=== PATIENT | male | born 1970 | race Hispanic/Latino ===

== ENCOUNTER 2018-09-11 14:06 | Emergency (ER) | payer SELFPAY ==
--- NOTE | 2018-09-11 15:16 | RAD ---
EXAM: Chest 2 views: HISTORY: Chest pain COMPARISON: None. FINDINGS: There is a normal-sized cardiomediastinal silhouette. There is left basilar atelectasis. There is n o evidence of consolidation, mass, or pleural effusion. The bones are unremarkable. IMPRESSION: No evidence of acute cardiopulmonary disease
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
== END 2018-09-11 16:57 | disposition home or self-care (01) ==
LOC: ERS 14:06
DX: S22.43XA Multiple fractures of ribs, bilateral, initial encounter for closed fracture (principal); E11.9 Type 2 diabetes mellitus without complications; I10 Essential (primary) hypertension; E78.00 Pure hypercholesterolemia, unspecified; V89.2XXA Person injured in unspecified motor-vehicle accident, traffic, initial encounter
CPT/HCPCS: 71046; 71260; 93005

== ENCOUNTER 2021-06-12 16:22 | Inpatient (IN) | payer MEDICAID, OTHER, SELFPAY ==
[2021-06-12 17:35] LABS: #Lymphocytes 0.8 thou/uL (1.20-3.40); #Monocytes 0.7 thou/uL (0.11-0.59); #Neutrophils 11.4 thou/uL (1.40-6.50); %Basophils 0.1 % (0.0-1.0); %Eosinophils 0.1 % (0.0-10.0); %Lymphocytes 6.3 % (21.0-51.0); %Monocytes 5.5 % (0.0-10.0); Hemoglobin 12.7 g/dL (14.0-18.0); Mean Corpuscular HGB CONC 32.8 g/dL (32.0-36.0); Mean Corpuscular Hemoglobin 33.4 pg (27.0-31.0); Mean Platelet Volume 8.2 fL (7.4-10.4); Platelet Count 321 thou/uL (130-400); RBC Distribution Width 10.9 % (11.5-14.5)
[2021-06-12] MEDS ORDERED: Piperacillin/Tazobactam 4.5 GM VIAL ONE (17:39)
[2021-06-12] MEDS ORDERED: Morphine 4 MG/ML VIAL ONE (17:39)
[2021-06-12 17:55] LABS: ALT (SGPT) 14 U/L (8-55); AST (SGOT) 27 U/L (5-34); Albumin 2.6 g/dL (3.5-5.0); Alkaline Phosphatase 131 U/L (40-110); Anion Gap 29 mmol/L (10-20); BUN (Urea Nitrogen) 67 mg/dL (8.9-20.6); Bilirubin, Total 0.4 mg/dL (0.2-1.2); Calc. Creatinine Clearance 0 mL/min (70-130); Calcium 8.3 mg/dL (7.8-10.44); Carbon Dioxide 15 mmol/L (22-29); Chloride 83 mmol/L (98-107); Globulin 5.7 g/dL (2.4-3.5); Potassium 5.9 mmol/L (3.5-5.1); Protein, Total 8.3 g/dL (6.0-8.3); Sodium 121 mmol/L (136-145)
[2021-06-12 18:04] LABS: Glucose 659 mg/dL (70-105)
[2021-06-12] MEDS ORDERED: Vancomycin 1 GM/200 ML BAG ONE (18:05)
[2021-06-12] MEDS ORDERED: Electrolyte Replacement Protocol 1 EACH IVPB PRN (19:18)
[2021-06-12] MEDS ORDERED: NS 0.9% w/ 20 MEQ KCL 1,000 ML IV PRN ×2 (19:18)
[2021-06-12] MEDS ORDERED: Ondansetron PF 4 MG/2 ML Vial IVP PRN (19:18)
[2021-06-12] MEDS ORDERED: Sodium Chloride 0.9% 1,000 ML IV PRN ×4 (19:18)
[2021-06-12] MEDS ORDERED: Calcium Carbonate 500 MG ChewTAB PO PRN (19:18)
[2021-06-12] MEDS ORDERED: Dextrose 5 %-0.45 % NaCl 1,000 ML IV PRN (19:18)
[2021-06-12] MEDS ORDERED: INSULIN REGULAR IN 0.9 % NACL 100 UNIT/100 ML BAG ONE (19:33)
[2021-06-12 20:38] LABS: Hemoglobin A1c 13.3 % (4.0-6.0)
[2021-06-12 20:47] LABS: Lactic Acid 2.2 mmol/L (0.5-2.2)
[2021-06-12 20:52] LABS: Anion Gap 21 mmol/L (10-20); BUN (Urea Nitrogen) 62 mg/dL (8.9-20.6); Calc. Creatinine Clearance 0 mL/min (70-130); Calcium 8.4 mg/dL (7.8-10.44); Carbon Dioxide 17 mmol/L (22-29); Chloride 91 mmol/L (98-107); Glucose 509 mg/dL (70-105); Magnesium 2.4 mg/dL (1.6-2.6); Phosphorus 5.1 mg/dL (2.3-4.7); Potassium 4.3 mmol/L (3.5-5.1); Sodium 125 mmol/L (136-145)
[2021-06-12] MEDS ORDERED: HUMULIN R 100 UNITS in Sodium Chloride 0.9% 100 ML IVPB SCH (21:00)
[2021-06-12] MEDS ORDERED: Heparin 5,000 UNITS/ML VIAL SC SCH ×2 (21:00→21:45)
[2021-06-12] MEDS ORDERED: Sodium Bicarbonate 50 MEQ in Sodium Chloride 0.45% 1,000 ML IV SCH (21:30)
[2021-06-12] MEDS: Morphine 2 MG/ML VIAL SLOW IVP PRN (21:38)
[2021-06-12] MEDS: Famotidine 20 MG TAB PO SCH (21:39)
[2021-06-12] MEDS: Clindamycin/D5W 900 MG in Premix Bag 1 BAG IVPB SCH (22:35)
[2021-06-12 23:58] LABS: Anion Gap 21 mmol/L (10-20); BUN (Urea Nitrogen) 58 mg/dL (8.9-20.6); Calc. Creatinine Clearance 52 mL/min (70-130); Calcium 8.7 mg/dL (7.8-10.44); Carbon Dioxide 19 mmol/L (22-29); Chloride 96 mmol/L (98-107); Glucose 208 mg/dL (70-105); Sodium 132 mmol/L (136-145)
[2021-06-13] MEDS: D5 1/2 NS w/20 mEq KCL 1,000 ML IV PRN ×2 (00:13→04:50)
[2021-06-13 00:32] LABS: SARS-CoV-2 NAA Rapid Test Not Detected (NotDetected)
[2021-06-13] MEDS: Piperacillin/Tazobactam 3.375 GM in Sodium Chloride 0.9% 100 ML IVPB SCH ×3 (01:08→16:04)
[2021-06-13] MEDS ORDERED: Vancomycin HCl 1 GM in Sodium Chloride 0.9% 250 ML 300 ML IVPB SCH (02:00)
[2021-06-13 04:12] LABS: ALT (SGPT) 12 U/L (8-55); AST (SGOT) 25 U/L (5-34); Alkaline Phosphatase 84 U/L (40-110); Anion Gap 13 mmol/L (10-20); BUN (Urea Nitrogen) 44 mg/dL (8.9-20.6); Bilirubin, Total 0.3 mg/dL (0.2-1.2); Calc. Creatinine Clearance 79 mL/min (70-130); Calcium 7.9 mg/dL (7.8-10.44); Carbon Dioxide 22 mmol/L (22-29); Chloride 100 mmol/L (98-107); Globulin 4.9 g/dL (2.4-3.5); Glucose 184 mg/dL (70-105); Potassium 3.5 mmol/L (3.5-5.1); Protein, Total 6.9 g/dL (6.0-8.3); Sodium 131 mmol/L (136-145)
[2021-06-13] MEDS: Acetaminophen 325 MG TAB PO PRN (04:18)
[2021-06-13 04:22] LABS: Hemoglobin 9.9 g/dL (14.0-18.0); Mean Corpuscular HGB CONC 34.2 g/dL (32.0-36.0); Mean Corpuscular Volume 99.2 fL (78.0-98.0); Mean Platelet Volume 7.4 fL (7.4-10.4); Platelet Count 237 thou/uL (130-400); RBC Distribution Width 10.8 % (11.5-14.5); Red Blood Cell (RBC) Count 2.91 mill/uL (4.70-6.10); White Blood Cell (WBC) Count 7.4 thou/uL (4.8-10.8)
[2021-06-13] MEDS: Clindamycin/D5W 900 MG in Premix Bag 1 BAG IVPB SCH ×3 (05:06→21:03)
[2021-06-13 05:12] LABS: Band 31 % (5-11); Lymphocytes 18 % (21-51); MDiff Complete? YES; Metamyelocyte 1 % (0-0); Monocytes 4 % (0-10); Neutrophil 46 % (42-75)
[2021-06-13] MEDS ORDERED: Insulin Glargine 30 UNITS/0.3 ML VIAL SC SCH ×2 (06:00→21:00)
[2021-06-13] MEDS: Vancomycin HCl 1.25 GM in Sodium Chloride 0.9% 250 ML 250 ML IVPB SCH (06:03)
[2021-06-13] MEDS ORDERED: Potassium Chloride 20 MEQ TAB PO SCH (06:30)
[2021-06-13] MEDS ORDERED: HumaLOG 300 UNITS/3 ML VIAL SC PRN (06:35)
[2021-06-13] MEDS ORDERED: Dextrose 5% in Water 1,000 ML IV PRN (06:35)
[2021-06-13] MEDS ORDERED: Dextrose 50% Abboject 50 ML SYRINGE SLOW IVP PRN (06:35)
[2021-06-13] MEDS: Potassium Chloride 20 MEQ in Premix Bag 1 BAG IVPB SCH ×2 (07:07→09:11)
[2021-06-13] MEDS: Heparin 5,000 UNITS/ML VIAL SC SCH ×3 (09:12→20:59)
[2021-06-13] MEDS: Famotidine 20 MG TAB PO SCH ×2 (09:12→21:03)
[2021-06-13] MEDS: D5 1/2 NS w/20 mEq KCL 1,000 ML IV SCH ×2 (09:35→15:55)
[2021-06-13] MEDS: Morphine 2 MG/ML VIAL SLOW IVP PRN ×3 (10:55→19:21)
[2021-06-13] MEDS: HumaLOG 300 UNITS/3 ML VIAL SC PRN ×3 (11:18→21:02)
[2021-06-13] MEDS ORDERED: Lidocaine 1% PF 5 ML VIAL ONE (15:54)
[2021-06-13] MEDS ORDERED: Ondansetron PF 4 MG/2 ML Vial ONE (15:54)
[2021-06-13] MEDS ORDERED: PROPOFOL 200 MG/20 ML VIAL ONE (15:54)
[2021-06-13] MEDS ORDERED: Rocuronium Bromide 10 MG/ML (10ML VIAL) ONE (15:54)
[2021-06-13] MEDS ORDERED: Calcium Chloride 1 GM/10 ML Abboject SYRINGE ONE (15:54)
[2021-06-13] MEDS ORDERED: SUGAMMADEX SODIUM 200 MG/2 ML VIAL ONE (16:30)
[2021-06-14] MEDS: Piperacillin/Tazobactam 3.375 GM in Sodium Chloride 0.9% 100 ML IVPB SCH ×3 (00:38→17:27)
[2021-06-14] MEDS: Acetaminophen 325 MG TAB PO PRN (00:38)
[2021-06-14] MEDS: Morphine 2 MG/ML VIAL SLOW IVP PRN ×2 (03:16→11:17)
[2021-06-14] MEDS: HumaLOG 300 UNITS/3 ML VIAL SC PRN ×4 (03:17→16:27)
[2021-06-14] MEDS: D5 1/2 NS w/20 mEq KCL 1,000 ML IV SCH (03:44)
[2021-06-14 03:45] LABS: #Lymphocytes 0.7 thou/uL (1.20-3.40); #Monocytes 0.3 thou/uL (0.11-0.59); #Neutrophils 5.1 thou/uL (1.40-6.50); %Lymphocytes 11.1 % (21.0-51.0); %Monocytes 5.2 % (0.0-10.0); %Neutrophils 83.6 % (42.0-75.0); Hemoglobin 9.4 g/dL (14.0-18.0); Mean Corpuscular HGB CONC 33.5 g/dL (32.0-36.0); Mean Corpuscular Hemoglobin 33.8 pg (27.0-31.0); Mean Platelet Volume 7.7 fL (7.4-10.4); Platelet Count 222 thou/uL (130-400); Red Blood Cell (RBC) Count 2.78 mill/uL (4.70-6.10); White Blood Cell (WBC) Count 6.1 thou/uL (4.8-10.8)
[2021-06-14 04:05] LABS: ALT (SGPT) 13 U/L (8-55); AST (SGOT) 24 U/L (5-34); Albumin 1.9 g/dL (3.5-5.0); Alkaline Phosphatase 70 U/L (40-110); Anion Gap 12 mmol/L (10-20); BUN (Urea Nitrogen) 14 mg/dL (8.9-20.6); Bilirubin, Total 0.3 mg/dL (0.2-1.2); Calc. Creatinine Clearance 116 mL/min (70-130); Carbon Dioxide 21 mmol/L (22-29); Chloride 103 mmol/L (98-107); Globulin 4.6 g/dL (2.4-3.5); Glucose 245 mg/dL (70-105); Potassium 3.2 mmol/L (3.5-5.1); Protein, Total 6.5 g/dL (6.0-8.3); Sodium 133 mmol/L (136-145)
[2021-06-14] MEDS: Clindamycin/D5W 900 MG in Premix Bag 1 BAG IVPB SCH ×3 (05:05→21:25)
[2021-06-14] MEDS ORDERED: HYDROcodone/Acetaminophen 5/325 mg Tablet PO SCH (05:30)
[2021-06-14] MEDS ORDERED: Potassium Chloride 20 MEQ in Premix Bag 1 BAG IVPB SCH (06:00)
[2021-06-14] MEDS: Vancomycin HCl 1.25 GM in Sodium Chloride 0.9% 250 ML 250 ML IVPB SCH (06:41)
[2021-06-14] MEDS: Acetaminophen 500 MG TAB PO SCH ×3 (08:29→21:23)
[2021-06-14] MEDS: metFORMIN 500 MG TAB PO SCH ×2 (08:30→17:24)
[2021-06-14] MEDS: Gabapentin 100 MG CAP PO SCH ×3 (08:30→21:20)
[2021-06-14] MEDS: Heparin 5,000 UNITS/ML VIAL SC SCH ×3 (08:31→21:24)
[2021-06-14] MEDS: Famotidine 20 MG TAB PO SCH ×2 (08:31→21:24)
[2021-06-14] MEDS: Ibuprofen 800 MG TAB PO SCH ×2 (08:35→15:06)
[2021-06-14] MEDS: HYDROcodone/Acetaminophen 7.5/325 mg Tablet PO PRN (21:23)
[2021-06-14] MEDS: NPH, Human Insulin Isophane 300 UNIT/3 ML VIAL SC SCH (21:26)
[2021-06-14] MEDS ORDERED: Sodium Chloride 0.9% 500 ML IV SCH (21:45)
[2021-06-14] MEDS ORDERED: Ketorolac Tromethamine 30 MG/ML VIAL IVP SCH (23:15)
[2021-06-14] MEDS ORDERED: Sodium Chloride 0.9% 1,000 ML IV SCH (23:15)
[2021-06-15] MEDS: Ibuprofen 800 MG TAB PO SCH ×4 (00:55→22:03)
[2021-06-15] MEDS: Piperacillin/Tazobactam 3.375 GM in Sodium Chloride 0.9% 100 ML IVPB SCH ×2 (01:00→10:07)
[2021-06-15] MEDS: Acetaminophen 500 MG TAB PO SCH ×4 (01:46→18:10)
[2021-06-15 04:58] LABS: Bilirubin Negative (Negative); Blood, Urine Negative (Negative); Clarity Clear (Clear); Glucose, Urine (Dipstick) 500 mg/dL (Negative); Ketone, Urine Negative (Negative); Leukocyte Negative Leu/uL (Negative); Nitrite Negative (Negative); Protein, Urine (Dipstick) 30 mg/dL (Neg-Trace); Urobilinogen Normal mg/dL (Less than 2); pH, Urine 5.5 (5.0-9.0)
[2021-06-15] MEDS: Clindamycin/D5W 900 MG in Premix Bag 1 BAG IVPB SCH (05:40)
[2021-06-15] MEDS ORDERED: Vancomycin HCl 1.5 GM in Sodium Chloride 0.9% 250 ML 300 ML IVPB SCH (06:00)
[2021-06-15 06:04] LABS: #Lymphocytes 0.9 thou/uL (1.20-3.40); #Monocytes 0.3 thou/uL (0.11-0.59); #Neutrophils 5.2 thou/uL (1.40-6.50); %Basophils 0.3 % (0.0-1.0); %Eosinophils 0.6 % (0.0-10.0); %Lymphocytes 13.7 % (21.0-51.0); %Neutrophils 81.3 % (42.0-75.0); Hemoglobin 10.1 g/dL (14.0-18.0); Mean Corpuscular HGB CONC 32.7 g/dL (32.0-36.0); Mean Corpuscular Hemoglobin 33.6 pg (27.0-31.0); Mean Platelet Volume 7.9 fL (7.4-10.4); Platelet Count 243 thou/uL (130-400); RBC Distribution Width 11.2 % (11.5-14.5); Red Blood Cell (RBC) Count 3.02 mill/uL (4.70-6.10); White Blood Cell (WBC) Count 6.4 thou/uL (4.8-10.8)
[2021-06-15] MEDS: HumaLOG 300 UNITS/3 ML VIAL SC PRN (06:26)
[2021-06-15 06:30] LABS: Vancomycin, Trough 7.2 ug/mL
[2021-06-15 06:31] LABS: ALT (SGPT) 10 U/L (8-55); AST (SGOT) 20 U/L (5-34); Albumin 1.8 g/dL (3.5-5.0); Alkaline Phosphatase 74 U/L (40-110); Anion Gap 13 mmol/L (10-20); BUN (Urea Nitrogen) 21 mg/dL (8.9-20.6); Bilirubin, Total 0.2 mg/dL (0.2-1.2); Calc. Creatinine Clearance 109 mL/min (70-130); Calcium 7.7 mg/dL (7.8-10.44); Carbon Dioxide 21 mmol/L (22-29); Chloride 104 mmol/L (98-107); Globulin 4.6 g/dL (2.4-3.5); Glucose 221 mg/dL (70-105); Potassium 3.1 mmol/L (3.5-5.1); Protein, Total 6.4 g/dL (6.0-8.3); Sodium 135 mmol/L (136-145)
[2021-06-15] MEDS ORDERED: Potassium Chloride 20 MEQ TAB PO SCH (07:00)
[2021-06-15] MEDS: Vancomycin HCl 1.25 GM in Sodium Chloride 0.9% 250 ML 250 ML IVPB SCH (07:26)
[2021-06-15] MEDS: Vancomycin HCl 1.5 GM in Sodium Chloride 0.9% 250 ML 300 ML IVPB SCH ×2 (07:50→18:10)
[2021-06-15] MEDS ORDERED: NS 0.9% w/ 20 MEQ KCL 1,000 ML/1,000 ML BAG IV SCH (08:00)
[2021-06-15] MEDS: Gabapentin 100 MG CAP PO SCH ×3 (08:04→21:58)
[2021-06-15] MEDS: Famotidine 20 MG TAB PO SCH ×2 (08:04→21:57)
[2021-06-15] MEDS: NPH, Human Insulin Isophane 300 UNIT/3 ML VIAL SC SCH ×2 (08:05→22:19)
[2021-06-15] MEDS: Heparin 5,000 UNITS/ML VIAL SC SCH ×3 (08:05→21:59)
[2021-06-15] MEDS: metFORMIN 850 MG TAB PO SCH ×2 (08:06→18:10)
[2021-06-15] MEDS ORDERED: Saccharomyces boulardii 250 MG CAP PO SCH (12:45)
[2021-06-15] MEDS: Morphine 2 MG/ML VIAL SLOW IVP PRN (14:20)
[2021-06-15] MEDS: cefTRIAXone\\ROCEPHIN 1 GM in Sodium Chloride 0.9% 100 ML IVPB SCH (15:05)
[2021-06-15] MEDS: HYDROcodone/Acetaminophen 7.5/325 mg Tablet PO PRN (16:04)
[2021-06-15] MEDS: Lactated Ringer's 1,000 ML IV SCH ×2 (19:23→21:52)
[2021-06-15 21:29] VITALS: BMI 27.1
[2021-06-16] MEDS: Acetaminophen 500 MG TAB PO SCH ×5 (01:25→20:42)
[2021-06-16] MEDS: Ibuprofen 800 MG TAB PO SCH ×3 (05:50→23:13)
[2021-06-16] MEDS: HYDROcodone/Acetaminophen 7.5/325 mg Tablet PO PRN ×3 (05:52→13:53)
[2021-06-16] MEDS: Lactated Ringer's 1,000 ML IV SCH ×2 (05:54→21:40)
[2021-06-16 06:03] LABS: ALT (SGPT) 10 U/L (8-55); AST (SGOT) 25 U/L (5-34); Albumin 1.9 g/dL (3.5-5.0); Alkaline Phosphatase 93 U/L (40-110); Anion Gap 13 mmol/L (10-20); BUN (Urea Nitrogen) 17 mg/dL (8.9-20.6); Bilirubin, Total 0.2 mg/dL (0.2-1.2); Calc. Creatinine Clearance 141 mL/min (70-130); Calcium 7.7 mg/dL (7.8-10.44); Carbon Dioxide 18 mmol/L (22-29); Chloride 107 mmol/L (98-107); Globulin 4.8 g/dL (2.4-3.5); Glucose 110 mg/dL (70-105); Potassium 3.1 mmol/L (3.5-5.1); Protein, Total 6.7 g/dL (6.0-8.3); Sodium 135 mmol/L (136-145)
[2021-06-16] MEDS ORDERED: Potassium Chloride 20 MEQ TAB PO SCH (06:15)
[2021-06-16] MEDS: Morphine 2 MG/ML VIAL SLOW IVP PRN ×2 (06:17→09:24)
[2021-06-16] MEDS: Vancomycin HCl 1.5 GM in Sodium Chloride 0.9% 250 ML 300 ML IVPB SCH ×2 (08:24→18:00)
[2021-06-16] MEDS: Saccharomyces boulardii 250 MG CAP PO SCH (08:30)
[2021-06-16] MEDS: metFORMIN 500 MG TAB PO SCH ×2 (08:30→18:00)
[2021-06-16] MEDS: Famotidine 20 MG TAB PO SCH ×2 (08:32→21:39)
[2021-06-16] MEDS: Gabapentin 100 MG CAP PO SCH ×3 (08:34→21:39)
[2021-06-16] MEDS: NPH, Human Insulin Isophane 300 UNIT/3 ML VIAL SC SCH ×2 (08:34→21:39)
[2021-06-16] MEDS: Heparin 5,000 UNITS/ML VIAL SC SCH ×3 (08:34→21:39)
[2021-06-16] MEDS ORDERED: Tamsulosin HCl 0.4 MG CAP PO SCH (12:30)
[2021-06-16] MEDS ORDERED: Folic Acid 1 MG TAB PO SCH (13:00)
[2021-06-16] MEDS: cefTRIAXone\\ROCEPHIN 1 GM in Sodium Chloride 0.9% 100 ML IVPB SCH (15:11)
[2021-06-16 17:24] LABS: Vancomycin, Trough 22.2 ug/mL
[2021-06-17] MEDS: Acetaminophen 500 MG TAB PO SCH ×4 (01:51→19:45)
[2021-06-17] MEDS: Vancomycin HCl 1.5 GM in Sodium Chloride 0.9% 250 ML 300 ML IVPB SCH (05:46)
[2021-06-17 06:03] LABS: ALT (SGPT) 15 U/L (8-55); AST (SGOT) 34 U/L (5-34); Albumin 1.8 g/dL (3.5-5.0); Alkaline Phosphatase 106 U/L (40-110); Anion Gap 13 mmol/L (10-20); BUN (Urea Nitrogen) 9 mg/dL (8.9-20.6); Bilirubin, Total 0.2 mg/dL (0.2-1.2); Calc. Creatinine Clearance 154 mL/min (70-130); Calcium 7.4 mg/dL (7.8-10.44); Carbon Dioxide 19 mmol/L (22-29); Chloride 105 mmol/L (98-107); Globulin 4.6 g/dL (2.4-3.5); Glucose 155 mg/dL (70-105); Potassium 3.5 mmol/L (3.5-5.1); Protein, Total 6.4 g/dL (6.0-8.3); Sodium 133 mmol/L (136-145)
[2021-06-17] MEDS ORDERED: Potassium Chloride 20 MEQ TAB PO SCH (06:30)
[2021-06-17] MEDS: Ibuprofen 800 MG TAB PO SCH ×3 (07:27→23:11)
[2021-06-17] MEDS: Lactated Ringer's 1,000 ML IV SCH ×2 (07:31→14:57)
[2021-06-17] MEDS: Gabapentin 100 MG CAP PO SCH ×3 (09:37→19:45)
[2021-06-17] MEDS: Folic Acid 1 MG TAB PO SCH (09:38)
[2021-06-17] MEDS: metFORMIN 500 MG TAB PO SCH ×2 (09:38→17:43)
[2021-06-17] MEDS: Saccharomyces boulardii 250 MG CAP PO SCH (09:38)
[2021-06-17] MEDS: Tamsulosin HCl 0.4 MG CAP PO SCH (09:39)
[2021-06-17] MEDS: Heparin 5,000 UNITS/ML VIAL SC SCH ×3 (09:39→19:46)
[2021-06-17] MEDS: Famotidine 20 MG TAB PO SCH ×2 (09:40→19:45)
[2021-06-17] MEDS: NPH, Human Insulin Isophane 300 UNIT/3 ML VIAL SC SCH ×2 (09:43→19:49)
[2021-06-17] MEDS: Morphine 2 MG/ML VIAL SLOW IVP PRN (09:55)
[2021-06-17] MEDS ORDERED: Cephalexin 250 MG CAP PO SCH (12:00)
[2021-06-17] MEDS: HYDROcodone/Acetaminophen 7.5/325 mg Tablet PO PRN ×2 (12:43→23:28)
[2021-06-17] MEDS ORDERED: Piperacillin/Tazobactam 3.375 GM in Sodium Chloride 0.9% 100 ML IVPB SCH (13:15)
[2021-06-17] MEDS ORDERED: Piperacillin/Tazobactam 4.5 GM in Sodium Chloride 0.9% 100 ML IVPB SCH (14:00)
[2021-06-17] MEDS: Piperacillin/Tazobactam 3.375 GM in Sodium Chloride 0.9% 100 ML IVPB SCH (17:40)
[2021-06-18] MEDS: Piperacillin/Tazobactam 3.375 GM in Sodium Chloride 0.9% 100 ML IVPB SCH ×3 (01:19→18:28)
[2021-06-18] MEDS: Acetaminophen 500 MG TAB PO SCH ×4 (01:19→20:28)
[2021-06-18] MEDS: Lactated Ringer's 1,000 ML IV SCH ×2 (01:20→11:35)
[2021-06-18 06:18] LABS: ALT (SGPT) 13 U/L (8-55); AST (SGOT) 23 U/L (5-34); Albumin 1.6 g/dL (3.5-5.0); Alkaline Phosphatase 81 U/L (40-110); Anion Gap 10 mmol/L (10-20); BUN (Urea Nitrogen) 6 mg/dL (8.9-20.6); Bilirubin, Total 0.2 mg/dL (0.2-1.2); Calc. Creatinine Clearance 156 mL/min (70-130); Calcium 7.1 mg/dL (7.8-10.44); Carbon Dioxide 24 mmol/L (22-29); Chloride 105 mmol/L (98-107); Globulin 4.2 g/dL (2.4-3.5); Glucose 114 mg/dL (70-105); Potassium 3.1 mmol/L (3.5-5.1); Protein, Total 5.8 g/dL (6.0-8.3); Sodium 136 mmol/L (136-145)
[2021-06-18] MEDS ORDERED: Potassium Chloride 20 MEQ TAB PO SCH (06:45)
[2021-06-18] MEDS: Ibuprofen 800 MG TAB PO SCH ×3 (06:47→23:17)
[2021-06-18] MEDS: metFORMIN 500 MG TAB PO SCH ×2 (08:55→18:27)
[2021-06-18] MEDS: Gabapentin 100 MG CAP PO SCH ×3 (08:56→20:29)
[2021-06-18] MEDS: Tamsulosin HCl 0.4 MG CAP PO SCH (08:57)
[2021-06-18] MEDS: Heparin 5,000 UNITS/ML VIAL SC SCH ×3 (08:58→20:32)
[2021-06-18] MEDS: Saccharomyces boulardii 250 MG CAP PO SCH (08:58)
[2021-06-18] MEDS: Famotidine 20 MG TAB PO SCH ×2 (08:58→20:28)
[2021-06-18] MEDS: Folic Acid 1 MG TAB PO SCH (08:58)
[2021-06-18] MEDS: NPH, Human Insulin Isophane 300 UNIT/3 ML VIAL SC SCH ×2 (08:59→20:47)
[2021-06-18] MEDS: Morphine 2 MG/ML VIAL SLOW IVP PRN (09:22)
[2021-06-18] MEDS: HYDROcodone/Acetaminophen 7.5/325 mg Tablet PO PRN ×2 (11:16→20:30)
[2021-06-18] MEDS ORDERED: Cephalexin 250 MG CAP PO SCH (12:00)
[2021-06-18] MEDS ORDERED: Piperacillin/Tazobactam 3.375 GM in Sodium Chloride 0.9% 100 ML IVPB SCH (18:00)
[2021-06-18] MEDS: Potassium Chloride 20 MEQ in Lactated Ringer's 1,000 ML IV SCH (18:42)
[2021-06-19] MEDS: Piperacillin/Tazobactam 3.375 GM in Sodium Chloride 0.9% 100 ML IVPB SCH ×3 (03:01→17:35)
[2021-06-19] MEDS: Acetaminophen 500 MG TAB PO SCH ×2 (03:02→18:00)
[2021-06-19 05:47] LABS: #Eosinphils 0.1 thou/uL (0.0-0.7); #Lymphocytes 1.1 thou/uL (1.20-3.40); #Monocytes 0.4 thou/uL (0.11-0.59); #Neutrophils 3.6 thou/uL (1.40-6.50); %Basophils 0.2 % (0.0-1.0); %Eosinophils 1.6 % (0.0-10.0); %Lymphocytes 20.5 % (21.0-51.0); %Monocytes 7.2 % (0.0-10.0); %Neutrophils 70.5 % (42.0-75.0); Hemoglobin 8.3 g/dL (14.0-18.0); Mean Corpuscular HGB CONC 32.9 g/dL (32.0-36.0); Platelet Count 286 thou/uL (130-400); Red Blood Cell (RBC) Count 2.51 mill/uL (4.70-6.10); White Blood Cell (WBC) Count 5.1 thou/uL (4.8-10.8)
[2021-06-19 06:19] LABS: Anion Gap 8 mmol/L (10-20); BUN (Urea Nitrogen) 5 mg/dL (8.9-20.6); Calc. Creatinine Clearance 173 mL/min (70-130); Calcium 7.7 mg/dL (7.8-10.44); Carbon Dioxide 26 mmol/L (22-29); Chloride 105 mmol/L (98-107); Glucose 80 mg/dL (70-105); Potassium 3.4 mmol/L (3.5-5.1); Sodium 136 mmol/L (136-145)
[2021-06-19] MEDS ORDERED: Potassium Chloride 20 MEQ TAB PO SCH (06:30)
[2021-06-19] MEDS: HYDROcodone/Acetaminophen 7.5/325 mg Tablet PO PRN ×3 (06:48→20:23)
[2021-06-19] MEDS: Morphine 2 MG/ML VIAL SLOW IVP PRN ×2 (08:53→15:12)
[2021-06-19] MEDS ORDERED: Acetaminophen 500 MG TAB PO PRN (09:12)
[2021-06-19] MEDS: Famotidine 20 MG TAB PO SCH ×2 (09:20→20:23)
[2021-06-19] MEDS: Gabapentin 100 MG CAP PO SCH ×3 (09:20→20:23)
[2021-06-19] MEDS: Tamsulosin HCl 0.4 MG CAP PO SCH (09:20)
[2021-06-19] MEDS: metFORMIN 500 MG TAB PO SCH ×2 (09:22→17:37)
[2021-06-19] MEDS ORDERED: D5 LR w/20 mEq KCL 1,000 ML IV SCH (09:45)
[2021-06-19] MEDS ORDERED: fentaNYL Citrate/PF 100 MCG/2 ML SYRINGE ONE (10:37)
[2021-06-19 11:28] LABS: SARS-CoV-2 PCR by NAA Not Detected (NotDetected)
[2021-06-19] MEDS ORDERED: Fentanyl 100 MCG/2 ML VIAL ONE ×3 (11:41→14:31)
[2021-06-19] MEDS ORDERED: Midazolam HCl 2 mg/2 ml Vial ONE (11:41)
[2021-06-19] MEDS ORDERED: Bupivacaine PF 0.5% 30 ML VIAL ONE (11:41)
[2021-06-19] MEDS ORDERED: Dextrose 50% Abboject 50 ML SYRINGE ONE (12:01)
[2021-06-19] MEDS: Heparin 5,000 UNITS/ML VIAL SC SCH ×3 (12:09→23:34)
[2021-06-19] MEDS: Ibuprofen 800 MG TAB PO SCH ×2 (12:09→17:35)
[2021-06-19] MEDS ORDERED: Phenylephrine 10 MG/ML VIAL ONE (12:19)
[2021-06-19] MEDS ORDERED: Ondansetron PF 4 MG/2 ML Vial ONE (12:32)
[2021-06-19] MEDS ORDERED: Lidocaine 1% PF 5 ML VIAL ONE (12:32)
[2021-06-19] MEDS ORDERED: Dexamethasone 20 MG/5 ML VIAL ONE (12:32)
[2021-06-19] MEDS ORDERED: PROPOFOL 200 MG/20 ML VIAL ONE (12:32)
[2021-06-19] MEDS ORDERED: Succinylcholine 200 MG/10 ml SYRINGE FS ONE (12:32)
[2021-06-19] MEDS ORDERED: Morphine 4 MG/ML VIAL SLOW IVP PRN (15:12)
[2021-06-19] MEDS: Saccharomyces boulardii 250 MG CAP PO SCH (15:14)
[2021-06-19] MEDS: Folic Acid 1 MG TAB PO SCH (15:14)
[2021-06-19] MEDS: HumaLOG 300 UNITS/3 ML VIAL SC PRN (17:38)
[2021-06-19] MEDS: Potassium Chloride 20 MEQ in Lactated Ringer's 1,000 ML IV SCH (18:00)
[2021-06-19] MEDS: NPH, Human Insulin Isophane 300 UNIT/3 ML VIAL SC SCH (22:55)
[2021-06-20] MEDS: Piperacillin/Tazobactam 3.375 GM in Sodium Chloride 0.9% 100 ML IVPB SCH ×3 (01:16→18:30)
[2021-06-20] MEDS: HYDROcodone/Acetaminophen 7.5/325 mg Tablet PO PRN ×5 (01:17→23:50)
[2021-06-20] MEDS: Ibuprofen 800 MG TAB PO SCH ×4 (01:17→23:51)
[2021-06-20] MEDS: HumaLOG 300 UNITS/3 ML VIAL SC PRN (05:58)
[2021-06-20 06:18] LABS: #Eosinphils 0.1 thou/uL (0.0-0.7); #Lymphocytes 1.3 thou/uL (1.20-3.40); #Monocytes 0.3 thou/uL (0.11-0.59); #Neutrophils 4.5 thou/uL (1.40-6.50); %Basophils 0.2 % (0.0-1.0); %Eosinophils 0.9 % (0.0-10.0); %Lymphocytes 21.8 % (21.0-51.0); %Monocytes 4.5 % (0.0-10.0); %Neutrophils 72.5 % (42.0-75.0); Hemoglobin 8.7 g/dL (14.0-18.0); Mean Corpuscular Hemoglobin 32.6 pg (27.0-31.0); Mean Platelet Volume 6.1 fL (7.4-10.4); Platelet Count 465 thou/uL (130-400); RBC Distribution Width 11.2 % (11.5-14.5); Red Blood Cell (RBC) Count 2.66 mill/uL (4.70-6.10); White Blood Cell (WBC) Count 6.2 thou/uL (4.8-10.8)
[2021-06-20] MEDS: Folic Acid 1 MG TAB PO SCH (07:39)
[2021-06-20] MEDS: metFORMIN 500 MG TAB PO SCH ×2 (07:39→15:49)
[2021-06-20] MEDS: Saccharomyces boulardii 250 MG CAP PO SCH (07:39)
[2021-06-20] MEDS: Tamsulosin HCl 0.4 MG CAP PO SCH (07:39)
[2021-06-20] MEDS: Heparin 5,000 UNITS/ML VIAL SC SCH ×3 (07:41→20:10)
[2021-06-20] MEDS: Gabapentin 100 MG CAP PO SCH ×3 (09:37→20:10)
[2021-06-20] MEDS: Famotidine 20 MG TAB PO SCH ×2 (09:37→20:09)
[2021-06-20] MEDS: NPH, Human Insulin Isophane 300 UNIT/3 ML VIAL SC SCH ×2 (11:43→20:55)
[2021-06-20 13:42] LABS: Anion Gap 12 mmol/L (10-20); BUN (Urea Nitrogen) 9 mg/dL (8.9-20.6); Calc. Creatinine Clearance 131 mL/min (70-130); Calcium 7.7 mg/dL (7.8-10.44); Carbon Dioxide 23 mmol/L (22-29); Chloride 103 mmol/L (98-107); Glucose 120 mg/dL (70-105); Potassium 3.7 mmol/L (3.5-5.1); Sodium 134 mmol/L (136-145)
[2021-06-21] MEDS: Piperacillin/Tazobactam 3.375 GM in Sodium Chloride 0.9% 100 ML IVPB SCH ×3 (02:06→20:15)
[2021-06-21] MEDS: HYDROcodone/Acetaminophen 7.5/325 mg Tablet PO PRN ×3 (04:41→22:51)
[2021-06-21 06:34] LABS: Anion Gap 9 mmol/L (10-20); BUN (Urea Nitrogen) 7 mg/dL (8.9-20.6); Calc. Creatinine Clearance 126 mL/min (70-130); Calcium 7.5 mg/dL (7.8-10.44); Carbon Dioxide 27 mmol/L (22-29); Chloride 103 mmol/L (98-107); Glucose 130 mg/dL (70-105); Potassium 3.3 mmol/L (3.5-5.1); Sodium 136 mmol/L (136-145)
[2021-06-21] MEDS ORDERED: Potassium Chloride 20 MEQ TAB PO SCH (07:00)
[2021-06-21] MEDS ORDERED: Atorvastatin Calcium 10 MG TAB PO SCH ×2 (09:00)
[2021-06-21] MEDS ORDERED: Lisinopril 5 MG TAB PO SCH (09:00)
[2021-06-21 09:38] LABS: Magnesium 1.7 mg/dL (1.6-2.6)
[2021-06-21] MEDS: Saccharomyces boulardii 250 MG CAP PO SCH (09:38)
[2021-06-21] MEDS: metFORMIN 500 MG TAB PO SCH ×2 (09:38→18:10)
[2021-06-21] MEDS: Tamsulosin HCl 0.4 MG CAP PO SCH (09:38)
[2021-06-21] MEDS: Gabapentin 100 MG CAP PO SCH ×3 (09:38→20:14)
[2021-06-21] MEDS: Folic Acid 1 MG TAB PO SCH (09:38)
[2021-06-21] MEDS: Ibuprofen 800 MG TAB PO SCH ×3 (09:38→22:51)
[2021-06-21] MEDS: NPH, Human Insulin Isophane 300 UNIT/3 ML VIAL SC SCH ×2 (09:39→21:26)
[2021-06-21] MEDS: Heparin 5,000 UNITS/ML VIAL SC SCH ×3 (09:39→20:15)
[2021-06-21] MEDS: Famotidine 20 MG TAB PO SCH ×2 (09:39→20:14)
[2021-06-21] MEDS: Potassium Chloride 20 MEQ TAB PO SCH ×2 (10:59→18:10)
[2021-06-21] MEDS: HumaLOG 300 UNITS/3 ML VIAL SC PRN (13:10)
[2021-06-21] MEDS ORDERED: Magnesium 2 GM/50 ML(in water) 2 GM in Premix Bag 1 BAG IVPB SCH (18:00)
[2021-06-21] MEDS ORDERED: Electrolyte Replacement Protocol FS PRN (18:00)
[2021-06-21] MEDS: Atorvastatin Calcium 40 MG TAB PO SCH (20:14)
[2021-06-22] MEDS: Piperacillin/Tazobactam 3.375 GM in Sodium Chloride 0.9% 100 ML IVPB SCH ×3 (02:18→17:56)
[2021-06-22 06:06] LABS: Anion Gap 11 mmol/L (10-20); BUN (Urea Nitrogen) 5 mg/dL (8.9-20.6); Calc. Creatinine Clearance 137 mL/min (70-130); Carbon Dioxide 28 mmol/L (22-29); Chloride 102 mmol/L (98-107); Glucose 158 mg/dL (70-105); Magnesium 1.8 mg/dL (1.6-2.6); Potassium 3.7 mmol/L (3.5-5.1); Sodium 137 mmol/L (136-145)
[2021-06-22] MEDS ORDERED: Magnesium 2 GM/50 ML(in water) 2 GM in Premix Bag 1 BAG IVPB SCH (06:15)
[2021-06-22] MEDS: metFORMIN 500 MG TAB PO SCH ×2 (07:42→17:56)
[2021-06-22] MEDS: HYDROcodone/Acetaminophen 7.5/325 mg Tablet PO PRN ×2 (07:42→18:00)
[2021-06-22] MEDS: Ibuprofen 800 MG TAB PO SCH (07:43)
[2021-06-22] MEDS ORDERED: Morphine 4 MG/ML VIAL ONE (09:03)
[2021-06-22] MEDS ORDERED: Lidocaine 4% Topical Sol 50 ML BOT TOP PRN (09:18)
[2021-06-22] MEDS: Morphine 4 MG/ML VIAL SLOW IVP PRN ×2 (09:35→20:47)
[2021-06-22] MEDS ORDERED: Ibuprofen 800 MG TAB PO PRN (09:37)
[2021-06-22] MEDS: Lisinopril 10 MG TAB PO SCH (09:39)
[2021-06-22] MEDS: Tamsulosin HCl 0.4 MG CAP PO SCH (09:39)
[2021-06-22] MEDS: Gabapentin 100 MG CAP PO SCH ×3 (09:39→20:51)
[2021-06-22] MEDS: Famotidine 20 MG TAB PO SCH ×2 (09:40→20:52)
[2021-06-22] MEDS: Folic Acid 1 MG TAB PO SCH (09:40)
[2021-06-22] MEDS: Saccharomyces boulardii 250 MG CAP PO SCH (09:40)
[2021-06-22] MEDS: NPH, Human Insulin Isophane 300 UNIT/3 ML VIAL SC SCH (09:40)
[2021-06-22] MEDS: Heparin 5,000 UNITS/ML VIAL SC SCH ×3 (09:40→20:53)
[2021-06-22] MEDS: Atorvastatin Calcium 40 MG TAB PO SCH (20:52)
[2021-06-22] MEDS ORDERED: NPH, Human Insulin Isophane 300 UNIT/3 ML VIAL SC SCH (21:00)
[2021-06-23] MEDS: Piperacillin/Tazobactam 3.375 GM in Sodium Chloride 0.9% 100 ML IVPB SCH ×3 (01:08→18:27)
[2021-06-23] MEDS: Morphine 4 MG/ML VIAL SLOW IVP PRN ×2 (05:57→15:50)
[2021-06-23] MEDS: Acetaminophen 500 MG TAB PO PRN (05:58)
[2021-06-23 06:09] LABS: Anion Gap 10 mmol/L (10-20); BUN (Urea Nitrogen) 4 mg/dL (8.9-20.6); Calc. Creatinine Clearance 141 mL/min (70-130); Calcium 8.4 mg/dL (7.8-10.44); Carbon Dioxide 29 mmol/L (22-29); Chloride 101 mmol/L (98-107); Glucose 146 mg/dL (70-105); Potassium 3.7 mmol/L (3.5-5.1); Sodium 136 mmol/L (136-145)
[2021-06-23] MEDS ORDERED: hydrALAZINE 20 MG/ML VIAL SLOW IVP PRN (06:18)
[2021-06-23 09:47] LABS: #Eosinphils 0.1 thou/uL (0.0-0.7); #Lymphocytes 1.2 thou/uL (1.20-3.40); #Monocytes 0.3 thou/uL (0.11-0.59); %Basophils 0.6 % (0.0-1.0); %Eosinophils 2.1 % (0.0-10.0); %Lymphocytes 20.7 % (21.0-51.0); %Monocytes 5.2 % (0.0-10.0); %Neutrophils 71.3 % (42.0-75.0); Hemoglobin 8.3 g/dL (14.0-18.0); Mean Corpuscular HGB CONC 33.9 g/dL (32.0-36.0); Mean Platelet Volume 5.3 fL (7.4-10.4); Platelet Count 649 thou/uL (130-400); RBC Distribution Width 12.1 % (11.5-14.5); Red Blood Cell (RBC) Count 2.43 mill/uL (4.70-6.10); White Blood Cell (WBC) Count 5.7 thou/uL (4.8-10.8)
[2021-06-23] MEDS: metFORMIN 500 MG TAB PO SCH ×2 (10:00→17:49)
[2021-06-23] MEDS: Heparin 5,000 UNITS/ML VIAL SC SCH ×3 (10:00→21:35)
[2021-06-23] MEDS: Saccharomyces boulardii 250 MG CAP PO SCH (10:00)
[2021-06-23] MEDS: Folic Acid 1 MG TAB PO SCH (10:00)
[2021-06-23] MEDS: Lisinopril 10 MG TAB PO SCH (10:01)
[2021-06-23] MEDS: Famotidine 20 MG TAB PO SCH ×2 (10:01→21:35)
[2021-06-23] MEDS: Gabapentin 100 MG CAP PO SCH ×3 (10:01→21:34)
[2021-06-23] MEDS: Tamsulosin HCl 0.4 MG CAP PO SCH (10:01)
[2021-06-23] MEDS ORDERED: Midazolam HCl 2 mg/2 ml Vial ONE (12:12)
[2021-06-23] MEDS ORDERED: fentaNYL Citrate/PF 100 MCG/2 ML SYRINGE ONE (12:12)
[2021-06-23] MEDS ORDERED: PHENYLEPHRINE-NS 100 MCG/ML 10 ML SYRINGE ONE (13:00)
[2021-06-23] MEDS ORDERED: PROPOFOL 200 MG/20 ML VIAL ONE (13:00)
[2021-06-23] MEDS ORDERED: Metoclopramide HCl 10 MG/2 ML VIAL ONE (13:00)
[2021-06-23] MEDS ORDERED: Lidocaine 1% PF 5 ML VIAL ONE (13:00)
[2021-06-23] MEDS ORDERED: Rocuronium Bromide 10 MG/ML (10ML VIAL) ONE (13:00)
[2021-06-23] MEDS ORDERED: Glycopyrrolate 0.2 MG/ML 5 ML SYRINGE ONE (13:00)
[2021-06-23] MEDS ORDERED: Ondansetron PF 4 MG/2 ML Vial ONE (13:00)
[2021-06-23] MEDS ORDERED: Fentanyl 100 MCG/2 ML VIAL ONE ×2 (14:22→14:36)
[2021-06-23] MEDS ORDERED: Promethazine HCl 25 MG/ML VIAL IVPB PRN (14:24)
[2021-06-23] MEDS ORDERED: Ondansetron HCl/PF 4 MG/2 ML Vial IVP PRN (14:24)
[2021-06-23] MEDS ORDERED: Promethazine HCl 25 MG/ML VIAL IM PRN (14:24)
[2021-06-23] MEDS: HYDROcodone/Acetaminophen 7.5/325 mg Tablet PO PRN (15:52)
[2021-06-23] MEDS ORDERED: Heparin 5,000 UNITS/ML VIAL SC SCH (16:45)
[2021-06-23] MEDS: metroNIDAZOLE 500 MG in Premix Bag 1 BAG IVPB SCH ×2 (16:51→21:39)
[2021-06-23] MEDS ORDERED: Lisinopril 10 MG TAB PO SCH (17:00)
[2021-06-23] MEDS ORDERED: Morphine 2 MG/ML VIAL SLOW IVP PRN (17:41)
[2021-06-23] MEDS ORDERED: Morphine 4 MG/ML VIAL SLOW IVP PRN (17:42)
[2021-06-23] MEDS ORDERED: Ketorolac Tromethamine 30 MG/ML VIAL IVP SCH (18:00)
[2021-06-23] MEDS: Atorvastatin Calcium 40 MG TAB PO SCH (21:34)
[2021-06-24] MEDS: Ketorolac Tromethamine 30 MG/ML VIAL IVP SCH ×5 (00:12→23:48)
[2021-06-24] MEDS: Piperacillin/Tazobactam 3.375 GM in Sodium Chloride 0.9% 100 ML IVPB SCH ×3 (02:52→18:18)
[2021-06-24] MEDS: HYDROcodone/Acetaminophen 7.5/325 mg Tablet PO PRN ×3 (04:19→18:21)
[2021-06-24] MEDS: HumaLOG 300 UNITS/3 ML VIAL SC PRN (04:24)
[2021-06-24 06:18] LABS: #Eosinphils 0.1 thou/uL (0.0-0.7); #Monocytes 0.3 thou/uL (0.11-0.59); #Neutrophils 5.4 thou/uL (1.40-6.50); %Basophils 0.4 % (0.0-1.0); %Eosinophils 1.5 % (0.0-10.0); %Lymphocytes 14.2 % (21.0-51.0); %Neutrophils 78.9 % (42.0-75.0); Hemoglobin 8.3 g/dL (14.0-18.0); Mean Corpuscular HGB CONC 33.8 g/dL (32.0-36.0); Mean Corpuscular Hemoglobin 33.7 pg (27.0-31.0); Mean Corpuscular Volume 99.7 fL (78.0-98.0); Mean Platelet Volume 4.9 fL (7.4-10.4); Platelet Count 528 thou/uL (130-400); RBC Distribution Width 12.1 % (11.5-14.5); Red Blood Cell (RBC) Count 2.46 mill/uL (4.70-6.10); White Blood Cell (WBC) Count 6.8 thou/uL (4.8-10.8)
[2021-06-24] MEDS: metroNIDAZOLE 500 MG in Premix Bag 1 BAG IVPB SCH ×3 (06:21→22:36)
[2021-06-24 06:26] LABS: Anion Gap 14 mmol/L (10-20); BUN (Urea Nitrogen) 7 mg/dL (8.9-20.6); Calc. Creatinine Clearance 113 mL/min (70-130); Carbon Dioxide 26 mmol/L (22-29); Chloride 102 mmol/L (98-107); Glucose 145 mg/dL (70-105); Potassium 3.7 mmol/L (3.5-5.1); Sodium 138 mmol/L (136-145)
[2021-06-24] MEDS: metFORMIN 500 MG TAB PO SCH ×2 (09:03→18:19)
[2021-06-24] MEDS: Gabapentin 100 MG CAP PO SCH ×3 (09:04→20:51)
[2021-06-24] MEDS: Tamsulosin HCl 0.4 MG CAP PO SCH (09:04)
[2021-06-24] MEDS: Saccharomyces boulardii 250 MG CAP PO SCH (09:05)
[2021-06-24] MEDS: Hydrochlorothiazide 25 MG TAB PO SCH (09:05)
[2021-06-24] MEDS: Lisinopril 10 MG TAB PO SCH (09:06)
[2021-06-24] MEDS: Folic Acid 1 MG TAB PO SCH (09:06)
[2021-06-24] MEDS: Famotidine 20 MG TAB PO SCH ×2 (09:06→20:52)
[2021-06-24] MEDS: Heparin 5,000 UNITS/ML VIAL SC SCH ×3 (09:07→20:52)
[2021-06-24] MEDS: NPH, Human Insulin Isophane 300 UNIT/3 ML VIAL SC SCH ×2 (09:08→20:53)
[2021-06-24] MEDS: HYDROcodone/Acetaminophen 7.5/325 mg Tablet PO SCH ×2 (11:13→20:51)
[2021-06-24] MEDS: Atorvastatin Calcium 40 MG TAB PO SCH (20:51)
[2021-06-25] MEDS: Piperacillin/Tazobactam 3.375 GM in Sodium Chloride 0.9% 100 ML IVPB SCH ×3 (02:28→18:40)
[2021-06-25] MEDS: HYDROcodone/Acetaminophen 7.5/325 mg Tablet PO PRN ×2 (02:34→16:04)
[2021-06-25] MEDS: metroNIDAZOLE 500 MG in Premix Bag 1 BAG IVPB SCH ×3 (05:47→23:08)
[2021-06-25] MEDS: Ketorolac Tromethamine 30 MG/ML VIAL IVP SCH ×4 (05:47→23:08)
[2021-06-25 06:36] LABS: Anion Gap 12 mmol/L (10-20); BUN (Urea Nitrogen) 8 mg/dL (8.9-20.6); Calc. Creatinine Clearance 128 mL/min (70-130); Calcium 8.2 mg/dL (7.8-10.44); Carbon Dioxide 28 mmol/L (22-29); Chloride 102 mmol/L (98-107); Glucose 138 mg/dL (70-105); Potassium 3.5 mmol/L (3.5-5.1); Sodium 138 mmol/L (136-145)
[2021-06-25 06:42] LABS: #Eosinphils 0.1 thou/uL (0.0-0.7); #Lymphocytes 1.2 thou/uL (1.20-3.40); #Monocytes 0.3 thou/uL (0.11-0.59); #Neutrophils 3.1 thou/uL (1.40-6.50); %Basophils 0.3 % (0.0-1.0); %Eosinophils 2.8 % (0.0-10.0); %Lymphocytes 25.7 % (21.0-51.0); %Monocytes 5.6 % (0.0-10.0); %Neutrophils 65.6 % (42.0-75.0); Hemoglobin 8.1 g/dL (14.0-18.0); Mean Corpuscular HGB CONC 32.8 g/dL (32.0-36.0); Mean Corpuscular Hemoglobin 33.1 pg (27.0-31.0); Mean Platelet Volume 5.5 fL (7.4-10.4); Platelet Count 554 thou/uL (130-400); RBC Distribution Width 12.5 % (11.5-14.5); Red Blood Cell (RBC) Count 2.45 mill/uL (4.70-6.10); White Blood Cell (WBC) Count 4.8 thou/uL (4.8-10.8)
[2021-06-25] MEDS ORDERED: Potassium Chloride 20 MEQ TAB PO SCH (07:00)
[2021-06-25] MEDS: metFORMIN 500 MG TAB PO SCH ×2 (08:20→16:00)
[2021-06-25] MEDS: Gabapentin 100 MG CAP PO SCH ×3 (08:54→20:09)
[2021-06-25] MEDS: Saccharomyces boulardii 250 MG CAP PO SCH (08:55)
[2021-06-25] MEDS: HYDROcodone/Acetaminophen 7.5/325 mg Tablet PO SCH ×2 (08:55→20:08)
[2021-06-25] MEDS: Lisinopril 10 MG TAB PO SCH (08:56)
[2021-06-25] MEDS: Hydrochlorothiazide 25 MG TAB PO SCH (08:56)
[2021-06-25] MEDS: Famotidine 20 MG TAB PO SCH ×2 (08:56→20:10)
[2021-06-25] MEDS: Folic Acid 1 MG TAB PO SCH (08:56)
[2021-06-25] MEDS: NPH, Human Insulin Isophane 300 UNIT/3 ML VIAL SC SCH ×2 (08:57→20:10)
[2021-06-25] MEDS: Tamsulosin HCl 0.4 MG CAP PO SCH (08:57)
[2021-06-25] MEDS: Heparin 5,000 UNITS/ML VIAL SC SCH ×3 (08:57→20:09)
[2021-06-25] MEDS: Atorvastatin Calcium 40 MG TAB PO SCH (20:10)
[2021-06-26] MEDS: Piperacillin/Tazobactam 3.375 GM in Sodium Chloride 0.9% 100 ML IVPB SCH ×2 (01:37→09:43)
[2021-06-26 05:13] LABS: #Eosinphils 0.1 thou/uL (0.0-0.7); #Lymphocytes 1.1 thou/uL (1.20-3.40); #Monocytes 0.3 thou/uL (0.11-0.59); #Neutrophils 2.9 thou/uL (1.40-6.50); %Basophils 0.7 % (0.0-1.0); %Eosinophils 2.2 % (0.0-10.0); %Lymphocytes 25.3 % (21.0-51.0); %Monocytes 6.7 % (0.0-10.0); %Neutrophils 65.1 % (42.0-75.0); Hemoglobin 8.3 g/dL (14.0-18.0); Mean Corpuscular HGB CONC 32.8 g/dL (32.0-36.0); Mean Platelet Volume 5.4 fL (7.4-10.4); Platelet Count 507 thou/uL (130-400); RBC Distribution Width 12.6 % (11.5-14.5); Red Blood Cell (RBC) Count 2.53 mill/uL (4.70-6.10); White Blood Cell (WBC) Count 4.4 thou/uL (4.8-10.8)
[2021-06-26 05:36] LABS: Anion Gap 13 mmol/L (10-20); BUN (Urea Nitrogen) 9 mg/dL (8.9-20.6); Calc. Creatinine Clearance 137 mL/min (70-130); Calcium 8.2 mg/dL (7.8-10.44); Carbon Dioxide 26 mmol/L (22-29); Chloride 101 mmol/L (98-107); Glucose 186 mg/dL (70-105); Potassium 3.6 mmol/L (3.5-5.1); Sodium 136 mmol/L (136-145)
[2021-06-26] MEDS: metroNIDAZOLE 500 MG in Premix Bag 1 BAG IVPB SCH (06:22)
[2021-06-26] MEDS: Ketorolac Tromethamine 30 MG/ML VIAL IVP SCH (06:22)
[2021-06-26] MEDS: Saccharomyces boulardii 250 MG CAP PO SCH (08:01)
[2021-06-26] MEDS: Gabapentin 100 MG CAP PO SCH ×3 (08:01→21:07)
[2021-06-26] MEDS: HYDROcodone/Acetaminophen 7.5/325 mg Tablet PO SCH ×2 (08:02→21:07)
[2021-06-26] MEDS: Tamsulosin HCl 0.4 MG CAP PO SCH (08:03)
[2021-06-26] MEDS: Hydrochlorothiazide 25 MG TAB PO SCH (08:03)
[2021-06-26] MEDS: Lisinopril 10 MG TAB PO SCH (08:03)
[2021-06-26] MEDS: metFORMIN 500 MG TAB PO SCH ×2 (08:03→16:04)
[2021-06-26] MEDS: Famotidine 20 MG TAB PO SCH ×2 (08:04→21:07)
[2021-06-26] MEDS: Folic Acid 1 MG TAB PO SCH (08:04)
[2021-06-26] MEDS: NPH, Human Insulin Isophane 300 UNIT/3 ML VIAL SC SCH ×2 (08:05→21:07)
[2021-06-26] MEDS: Heparin 5,000 UNITS/ML VIAL SC SCH ×3 (08:06→21:07)
[2021-06-26] MEDS: Acetaminophen 500 MG TAB PO PRN (10:54)
[2021-06-26 11:58] LABS: SARS-CoV-2 PCR by NAA Not Detected (NotDetected)
[2021-06-26] MEDS: HYDROcodone/Acetaminophen 7.5/325 mg Tablet PO PRN ×2 (14:41→23:18)
[2021-06-26] MEDS ORDERED: Hydrochlorothiazide 25 MG TAB PO SCH ×2 (14:48→15:00)
[2021-06-26] MEDS: Cephalexin 250 MG CAP PO SCH ×2 (17:08→23:18)
[2021-06-26] MEDS: metroNIDAZOLE 500 MG TAB PO SCH ×2 (17:08→23:18)
[2021-06-26] MEDS ORDERED: Cephalexin 250 MG CAP PO SCH (18:00)
[2021-06-26] MEDS: Atorvastatin Calcium 40 MG TAB PO SCH (21:07)
[2021-06-27] MEDS: Cephalexin 250 MG CAP PO SCH ×3 (05:18→17:24)
[2021-06-27] MEDS: metroNIDAZOLE 500 MG TAB PO SCH ×3 (05:18→17:23)
[2021-06-27 05:44] LABS: #Eosinphils 0.1 thou/uL (0.0-0.7); #Lymphocytes 1.2 thou/uL (1.20-3.40); #Monocytes 0.3 thou/uL (0.11-0.59); #Neutrophils 3.3 thou/uL (1.40-6.50); %Basophils 0.5 % (0.0-1.0); %Eosinophils 1.6 % (0.0-10.0); %Lymphocytes 24.1 % (21.0-51.0); %Monocytes 6.3 % (0.0-10.0); %Neutrophils 67.5 % (42.0-75.0); Hemoglobin 9.2 g/dL (14.0-18.0); Mean Corpuscular HGB CONC 33.6 g/dL (32.0-36.0); Mean Corpuscular Hemoglobin 33.1 pg (27.0-31.0); Mean Corpuscular Volume 98.5 fL (78.0-98.0); Mean Platelet Volume 5.3 fL (7.4-10.4); Platelet Count 510 thou/uL (130-400); RBC Distribution Width 12.8 % (11.5-14.5); Red Blood Cell (RBC) Count 2.79 mill/uL (4.70-6.10); White Blood Cell (WBC) Count 4.8 thou/uL (4.8-10.8)
[2021-06-27 06:02] LABS: Anion Gap 11 mmol/L (10-20); BUN (Urea Nitrogen) 10 mg/dL (8.9-20.6); Calc. Creatinine Clearance 143 mL/min (70-130); Calcium 8.7 mg/dL (7.8-10.44); Carbon Dioxide 30 mmol/L (22-29); Chloride 99 mmol/L (98-107); Glucose 92 mg/dL (70-105); Potassium 3.6 mmol/L (3.5-5.1); Sodium 136 mmol/L (136-145)
[2021-06-27] MEDS: Tamsulosin HCl 0.4 MG CAP PO SCH (08:02)
[2021-06-27] MEDS: Saccharomyces boulardii 250 MG CAP PO SCH (08:03)
[2021-06-27] MEDS: Gabapentin 300 MG CAP PO SCH ×3 (08:03→21:00)
[2021-06-27] MEDS: Lisinopril 10 MG TAB PO SCH (08:05)
[2021-06-27] MEDS: Famotidine 20 MG TAB PO SCH ×2 (08:05→21:00)
[2021-06-27] MEDS: metFORMIN 500 MG TAB PO SCH ×2 (08:05→17:23)
[2021-06-27] MEDS: Folic Acid 1 MG TAB PO SCH (08:05)
[2021-06-27] MEDS: HYDROcodone/Acetaminophen 7.5/325 mg Tablet PO SCH ×2 (08:06→21:00)
[2021-06-27] MEDS: Heparin 5,000 UNITS/ML VIAL SC SCH ×3 (08:07→21:00)
[2021-06-27] MEDS: NPH, Human Insulin Isophane 300 UNIT/3 ML VIAL SC SCH ×2 (08:08→21:00)
[2021-06-27] MEDS ORDERED: Hydrochlorothiazide 25 MG TAB PO SCH (09:00)
[2021-06-27] MEDS: HYDROcodone/Acetaminophen 7.5/325 mg Tablet PO PRN ×2 (12:26→17:27)
[2021-06-27] MEDS: Atorvastatin Calcium 40 MG TAB PO SCH (21:00)
[2021-06-27 23:16] VITALS: BP 121/76; TEMP 97
== END 2021-06-27 20:30 | disposition home or self-care (01) | DRG 853 ==
LOC: ERS 16:22 → CCU 19:27 → SURG A 06-14 15:59
PROVIDERS: ADMIT Student in an Organized Health Care Education/Training Program; ATTEND Student in an Organized Health Care Education/Training Program
PROC: 3E03329 Introduction of Other Anti-infective into Peripheral Vein, Percutaneous Approach (ICD-10-PCS; 2021-06-12)
PROC: 0Y6M0Z0 Detachment at Right Foot, Complete, Open Approach (ICD-10-PCS; principal; 2021-06-13)
PROC: 0Y6C0Z1 Detachment at Right Upper Leg, High, Open Approach (ICD-10-PCS; 2021-06-19)
PROC: 0JQL0ZZ Repair Right Upper Leg Subcutaneous Tissue and Fascia, Open Approach (ICD-10-PCS; 2021-06-23)
PROC: 0JQL0ZZ Repair Right Upper Leg Subcutaneous Tissue and Fascia, Open Approach (ICD-10-PCS; 2021-06-24)
DX: A41.01 Sepsis due to Methicillin susceptible Staphylococcus aureus (principal); A48.0 Gas gangrene; E11.10 Type 2 diabetes mellitus with ketoacidosis without coma; E11.52 Type 2 diabetes mellitus with diabetic peripheral angiopathy with gangrene; N17.9 Acute kidney failure, unspecified; E87.1 Hypo-osmolality and hyponatremia; A40.8 Other streptococcal sepsis; R65.20 Severe sepsis without septic shock; Z20.822 Contact with and (suspected) exposure to COVID-19; I10 Essential (primary) hypertension; E78.2 Mixed hyperlipidemia; E11.621 Type 2 diabetes mellitus with foot ulcer; L97.519 Non-pressure chronic ulcer of other part of right foot with unspecified severity; E78.00 Pure hypercholesterolemia, unspecified; E11.40 Type 2 diabetes mellitus with diabetic neuropathy, unspecified; N40.1 Benign prostatic hyperplasia with lower urinary tract symptoms; R33.8 Other retention of urine; E87.5 Hyperkalemia; E11.649 Type 2 diabetes mellitus with hypoglycemia without coma; G54.6 Phantom limb syndrome with pain; E87.6 Hypokalemia; E88.09 Other disorders of plasma-protein metabolism, not elsewhere classified; Z79.899 Other long term (current) drug therapy; Z79.84 Long term (current) use of oral hypoglycemic drugs; Z89.421 Acquired absence of other right toe(s); Z83.3 Family history of diabetes mellitus; Z82.49 Family history of ischemic heart disease and other diseases of the circulatory system; Z80.42 Family history of malignant neoplasm of prostate; Z87.891 Personal history of nicotine dependence
CPT/HCPCS: 36415; 36416; 71045; 80048; 80053; 80202; 81003; 82010; 82550; 82607; 82746; 83036; 83605; 83735; 83880; 84100; 84145; 84484; 85025; 85652; 86140; 87040; 87070; 87076; 87077; 87149; 87186; 87205; 88307; 93005; 96365; 96367; 96375; J0696; J1100; J1644; J1815; J1885; J2250; J2270; J2370; J2405; J2543; J2704; J2765; J3010; J3370; J3475; J3480; J3490; J7030; J7050; J7120; J7999; S0020; U0002; U0003; U0005